=== PATIENT | male | born 1940 | race Caucasian/White ===

== ENCOUNTER → 2020-12-09 08:36 | Outpatient (CLI) | payer OTHER, SELFPAY ==
[2020-12-09 09:44] LABS: Add Manual Diff / Slide Review NO; Basophils Absolute Auto 100 /uL (0-100); Basophils Percent Auto 1.2 % (0-2); Eosinophils Absolute Auto 200 /uL (0-450); Eosinophils Percent Auto 4.3 % (2-4); Hematocrit 42.8 % (41-53); Hemoglobin 14.6 g/dL (13.5-17.5); Lymphocytes Absolute Auto 1100 /uL (1100-4500); Lymphocytes Percent Auto 20.8 % (25-40); Mean Corpuscular Hemoglobin 30.1 PG (26-34); Mean Corpuscular Volume 88.6 fL (80-100); Monocytes Absolute Auto 400 /uL (0-900); Monocytes Percent Auto 8.6 % (3-14); Neutrophils Absolute Auto 3300 /uL (1500-7000); Neutrophils Percent Auto 65.1 % (50-75); Platelet Count 185 X10^3/uL (150-400); Red Blood Cell Count 4.83 X10^6/uL (4.5-5.9); Red Cell Distribution Width 14.2 % (11.6-14.8); White Blood Cell Count 5.1 X10^3/uL (4.5-11.0)
[2020-12-09 10:00] LABS: Hemoglobin A1C% w Est Avg Glu 6.7 % (4.0-6.0)
[2020-12-09 10:01] LABS: Alanine Aminotransferase 18 IU/L (<50); Albumin 4.1 g/dL (3.5-5.0); Albumin Globulin Ratio 1.3 (1.0-2.8); Alkaline Phosphatase 70 U/L (38-126); Aspartate Aminotransferase 23 IU/L (17-59); BUN Creatinine Ratio 14.3 (6-22); Bilirubin Total 1.5 mg/dL (0.2-1.3); Blood Urea Nitrogen 14 mg/dL (9-20); Calcium 9.3 mg/dL (8.4-10.2); Carbon Dioxide 30 mmol/L (22-32); Chloride 105 mmol/L (98-107); Cholesterol 143 mg/dL (140-199); Estimated Glomerular Filt Rate > 60.0 mL/min (>60); Globulin 3.1 g/dL (1.7-4.1); Glucose 137 mg/dL (80-110); HDL Cholesterol 67 mg/dL (40-60); HEMOLYSIS < 15 (0-50); LDL Cholesterol Calculated 58 mg/dL (<100); Potassium 4.3 mmol/L (3.4-5.1); Sodium 137 mmol/L (137-145); Total Protein 7.2 g/dL (6.3-8.2); Triglycerides 90 mg/dL (35-150)
[2020-12-09 10:31] LABS: Creatinine Urine Random 219.6 mg/dL
[2020-12-09 10:32] LABS: Microalbumi Creatinin Ratio Ur 4.5 ug/mg CR (<30)
[2020-12-09 10:59] LABS: TSH w/ Reflex to FT4 4.15 uIU/mL (0.47-4.68)
== END ==
PROVIDERS: PCP Internal Medicine; Referring Provider Internal Medicine; Visit Provider Internal Medicine
DX: N40.1 Benign prostatic hyperplasia with lower urinary tract symptoms; F32.9 Major depressive disorder, single episode, unspecified; E11.9 Type 2 diabetes mellitus without complications; I25.10 Atherosclerotic heart disease of native coronary artery without angina pectoris
CPT/HCPCS: 36415; 80053; 80061; 82043; 82570; 83036; 84443; 85025

== ENCOUNTER → 2021-02-08 10:59 | Outpatient (CLI) | payer MEDICARE, SELFPAY ==
[2021-02-08] MEDS: COVID-19 VACC, Ad26(JANSSEN)/PF 0.5 ML IM (11:20)
== END ==
PROVIDERS: PCP Internal Medicine; Visit Provider Internal Medicine
DX: Z23 Encounter for immunization (principal)
CPT/HCPCS: 0031A; 91303

== ENCOUNTER → 2023-08-21 08:17 | Outpatient (CLI) | payer OTHER, SELFPAY ==
[2023-08-21 10:18] LABS: Hemoglobin A1C% w Est Avg Glu 6.8 % (4.0-6.0)
[2023-08-21 10:28] LABS: Alanine Aminotransferase 18 IU/L (<50); Albumin 3.9 g/dL (3.5-5.0); Albumin Globulin Ratio 1.5 (1.0-2.8); Alkaline Phosphatase 64 U/L (38-126); Aspartate Aminotransferase 21 IU/L (17-59); BUN Creatinine Ratio 14.9 (6-22); Bilirubin Total 1.3 mg/dL (0.2-1.3); Blood Urea Nitrogen 15 mg/dL (9-20); Calcium 9.5 mg/dL (8.4-10.2); Carbon Dioxide 23 mmol/L (22-32); Chloride 105 mmol/L (98-107); Cholesterol 115 mg/dL (140-199); Estimated Glomerular Filt Rate > 60 mL/min (>60); Globulin 2.6 g/dL (1.7-4.1); Glucose 147 mg/dL (80-110); HDL Cholesterol 54 mg/dL (40-60); HEMOLYSIS < 15 (0-50); LDL Cholesterol Calculated 48 mg/dL (<100); Potassium 4.2 mmol/L (3.4-5.1); Sodium 137 mmol/L (137-145); Total Protein 6.5 g/dL (6.3-8.2); Triglycerides 63 mg/dL (35-150)
[2023-08-21 10:58] LABS: Prostate Specific Antigen 2.07 ng/mL (0.10-4.00)
[2023-08-22 15:27] LABS: Fecal Immunochemical Test Negative (Negative)
== END ==
PROVIDERS: PCP Family Medicine; Referring Provider Family Medicine; Visit Provider Family Medicine
DX: E11.9 Type 2 diabetes mellitus without complications (principal); N40.0 Benign prostatic hyperplasia without lower urinary tract symptoms; E78.5 Hyperlipidemia, unspecified; I25.10 Atherosclerotic heart disease of native coronary artery without angina pectoris; Z12.11 Encounter for screening for malignant neoplasm of colon
CPT/HCPCS: 36415; 80053; 80061; 82274; 83036; 84153

== ENCOUNTER → 2024-01-27 07:31 | Outpatient (CLI) | payer OTHER, SELFPAY ==
[2024-01-27 08:37] LABS: Hemoglobin A1C% w Est Avg Glu 7.1 % (4.0-6.0)
[2024-01-27 08:43] LABS: Add Manual Diff / Slide Review NO; Basophils Absolute Auto 0 /uL (0-100); Basophils Percent Auto 0.8 % (0-2); Eosinophils Absolute Auto 100 /uL (0-450); Eosinophils Percent Auto 2.2 % (2-4); Hematocrit 40.5 % (41-53); Lymphocytes Absolute Auto 1400 /uL (1100-4500); Lymphocytes Percent Auto 23.4 % (25-40); Mean Corpuscular HGB Conc 34.6 % (30-36); Mean Corpuscular Hemoglobin 29.6 PG (26-34); Mean Corpuscular Volume 85.7 fL (80-100); Monocytes Absolute Auto 600 /uL (0-900); Monocytes Percent Auto 10.2 % (3-14); Neutrophils Absolute Auto 3800 /uL (1500-7000); Neutrophils Percent Auto 63.4 % (50-75); Platelet Count 185 X10^3/uL (150-400); Red Blood Cell Count 4.73 X10^6/uL (4.5-5.9); Red Cell Distribution Width 13.4 % (11.6-14.8); White Blood Cell Count 5.9 X10^3/uL (4.5-11.0)
[2024-01-27 08:57] LABS: Alanine Aminotransferase 15 IU/L (<50); Albumin 3.7 g/dL (3.5-5.0); Albumin Globulin Ratio 1.3 (1.0-2.8); Alkaline Phosphatase 74 U/L (38-126); Aspartate Aminotransferase 19 IU/L (17-59); BUN Creatinine Ratio 20.9 (6-22); Bilirubin Total 1.7 mg/dL (0.2-1.3); Blood Urea Nitrogen 18 mg/dL (9-20); Calcium 9.5 mg/dL (8.4-10.2); Carbon Dioxide 21 mmol/L (22-32); Chloride 107 mmol/L (98-107); Cholesterol 108 mg/dL (140-199); Estimated Glomerular Filt Rate > 60 mL/min (>60); Globulin 2.8 g/dL (1.7-4.1); Glucose 161 mg/dL (80-110); HDL Cholesterol 43 mg/dL (40-60); HEMOLYSIS < 15 (0-50); Iron 124 ug/dL (49-181); LDL Cholesterol Calculated 38 mg/dL (<100); Potassium 3.9 mmol/L (3.4-5.1); Sodium 138 mmol/L (137-145); Total Protein 6.5 g/dL (6.3-8.2); Triglycerides 135 mg/dL (35-150)
[2024-01-27 09:08] LABS: Percent Iron Saturation 44 % (20-50); Total Iron Binding Capacity 280 ug/dL (261-462); Transferrin 228 mg/dL (206-381)
[2024-01-27 09:19] LABS: Prostate Specific Antigen Scrn 2.18 ng/mL (0.1-4.0)
== END ==
PROVIDERS: PCP Family Medicine; Referring Provider Family Medicine; Visit Provider Family Medicine
DX: E78.5 Hyperlipidemia, unspecified (principal); E11.9 Type 2 diabetes mellitus without complications; Z12.5 Encounter for screening for malignant neoplasm of prostate; N40.0 Benign prostatic hyperplasia without lower urinary tract symptoms; I10 Essential (primary) hypertension; D50.9 Iron deficiency anemia, unspecified
CPT/HCPCS: 36415; 80053; 80061; 83036; 83540; 83550; 85025; G0103

== ENCOUNTER → 2024-02-13 15:18 | Outpatient (CLI) | payer OTHER, SELFPAY ==
--- NOTE | 2024-02-13 15:20 | DI.CT.S_ITS ---
PROCEDURE: CT HEAD/BRAIN WO CON INDICATIONS: worsening migraines TECHNIQUE: Noncontrast 4.5 mm thick angled axial sections acquired from the foramen magnum to the vertex, with coronal and sagittal reformats. For radiation dose reduction, the following was used: automated exposure control, adjustment of mA and/or kV according to patient size. COMPARISON: None. FINDINGS: Image quality: Diagnostic. CSF spaces: Basal cisterns are patent. No extra-axial fluid collections. The ventricles are symmetric in size and shape. Brain: No intracranial bleeds or masses. There is cerebral volume loss for age, with resultant ventricular and sulcal prominence. There are periventricular and deep white matter chronic small vessel ischemic changes. There is intracranial internal carotid artery atherosclerosis. Skull and face: Calvarium and visualized facial bones appear intact, without suspicious lesions. Sinuses: Mild scattered mucosal thickening most prominent in the right maxillary sinus. IMPRESSION: No acute intracranial pathology. Dictated by: Tata Kilgore M.D. on 02/13/2024 at 16:19 Approved by: Tata Kilgore M.D. on 02/13/2024 at 16:20
== END ==
LOC: CT 15:18
PROVIDERS: PCP Family Medicine; Referring Provider Family Medicine; Visit Provider Family Medicine
DX: G43.909 Migraine, unspecified, not intractable, without status migrainosus (principal)
CPT/HCPCS: 70450

== ENCOUNTER → 2024-02-27 13:04 | Outpatient (CLI) | payer MEDICARE, SELFPAY ==
--- NOTE | 2024-02-27 13:06 | DI.RAD.S_ITS ---
PROCEDURE: XR CHEST 2V INDICATIONS: Increased SOB on exertion TECHNIQUE: 2 views of the chest were acquired. COMPARISON: None. FINDINGS: Surgical changes and devices: Median sternotomy wires. Lungs and pleura: Prominent tissue markings. Small bilateral pleural effusions. Mediastinum: Mediastinal contours are normal. Heart size is normal. Bones and chest wall: No suspicious bony abnormalities. Soft tissues appear unremarkable. IMPRESSION: Prominent interstitial markings and small bilateral pleural effusions, concerning for pulmonary edema Dictated by: Otoniel Law M.D. on 02/27/2024 at 16:27 Approved by: Otoniel Law M.D. on 02/27/2024 at 16:28
[2024-02-27 15:00] LABS: NT-proBNP (BNP-Adult 18+) 2560 pg/mL (<450)
== END ==
PROVIDERS: PCP Family Medicine; Referring Provider Family Medicine; Visit Provider Family Medicine
DX: I10 Essential (primary) hypertension (principal); R06.02 Shortness of breath; I25.10 Atherosclerotic heart disease of native coronary artery without angina pectoris; E78.00 Pure hypercholesterolemia, unspecified
CPT/HCPCS: 36415; 71046; 83880

== ENCOUNTER → 2024-03-09 07:57 | Outpatient (CLI) | payer MEDICARE, SELFPAY ==
--- NOTE | 2024-03-09 08:33 | DI.ECHO.S_ITS ---
[facility] +---------+ [facility] +---------+ : : [address] : [place] : : : : [id number] : : : : Phone: [phone] Echocardiogram Report + + :Name: KIRK WILKINS Study Date: 03/09/2024 Height: 70 in : :[facility] ReadingLocation: Weight: 192 lb : : Gender: Male BSA: 2.1 m2 : :: 1940 Age: 83 yrs BP: 139/84 mmHg: :Reason For Study: CONGESTIVE HEART FAILURE : :Ordering Physician: HADLEY, : :VINCENT Performed By: Tonya Juárez : :Referring: VINCENT BUTCHER : + + Interpretation Summary 1. The left ventricular contractility is normal. Estimated ejection fraction is greater than 55%. No segmental wall motion abnormalities appreciated. Normal diastolic function present. No LVH present. 2. The right ventricular contractility is normal. 3. All cardiac chambers are of normal size. 4. No significant valvular abnormalities are appreciated. 5. No obvious intracardiac masses or thrombi are appreciated. 6. No obvious intracardiac shunts present. 7. No hemodynamically significant pericardial effusion present. Procedure: A two-dimensional transthoracic echocardiogram with color flow and Doppler was performed. The study quality was technically adequate. The patient was in sinus rhythm with heart rates between 62-71 bpm during the exam. Left Ventricle: The left ventricle is normal in size and wall thickness. The ejection fraction is estimated to be 55-60%. Right Ventricle: The right ventricle is normal size. Right ventricular systolic function is at the lower limits of normal. Atria: The left atrial size is normal. Right atrial size is normal. There is no Doppler evidence for an interatrial shunt. Mitral Valve: The mitral valve is normal in structure and function. There is trace mitral regurgitation. Aortic Valve: The aortic valve is trileaflet. The aortic valve opens well. There is no aortic valve stenosis. No aortic regurgitation is present. Tricuspid Valve: The tricuspid valve is normal in structure and function. There is trace tricuspid regurgitation. The right ventricular systolic pressure is estimated to be at least 25 mmHg based on an estimated right atrial pressure of 3 mm Hg. Pulmonic Valve: The pulmonic valve leaflets are thin and pliable; valve motion is normal. There is a trace or physiologic amount of pulmonic regurgitation. Great Vessels: The aortic root is normal size. The dimensions of the ascending aorta are normal. The IVC is of normal diameter and collapses greater than 50% with a sniff. This suggests a low right atrial pressure of 3 mm Hg. Pericardium/ Pleura There is no pericardial effusion. There is no pleural effusion. MMode/2D Measurements & Calculations LVIDd: 5.0 cm LVOT diam: 2.0 cm LVIDs: 3.4 cm Ao root diam: 3.0 cm FS: 33.1 % asc Aorta Diam: 3.4 cm IVSd: 0.85 cm LVPWd: 0.76 cm LV schwartz. diameter/BSA (cm/m^2): 2.5 LV sys. diameter/BSA (cm/m^2): 1.6 LA A2 area: 21.4 cm2 RA long axis: 4.7 cm LA A4 area: 18.1 cm2 RA area: 15.7 cm2 LA length (vol): 5.2 cm RA vol: 44.4 ml LA vol: 63.3 ml RA : 21.6 ml/m2 LA vol index: 30.9 ml/m2 IVC diam: 1.9 cm RVD1 (basal): 3.5 cm RVD2 (mid): 3.6 cm TAPSE: 1.6 cm Doppler Measurements & Calculations Ao V2 max: 104.6 cm/sec LVOT Max Temo: 99.6 cm/sec Ao V2 mean: 75.1 cm/sec LV V1 max P.0 mmHg Ao max P.4 mmHg LV V1 VTI: 21.9 cm Ao mean P.5 mmHg FATIMAH(I,D): 3.1 cm2 Ao V2 VTI: 22.3 cm FATIMAH(V,D): 3.0 cm2 sev ratio: 0.98 FATIMAH indexed to BSA (cm^2/m^2): 1.5 MV E max temo: 96.5 cm/sec TR max temo: 234.2 cm/sec MV A max temo: 50.3 cm/sec TR max P.9 mmHg MV E/A: 1.9 PA V2 max: 93.3 cm/sec Med Peak E' Temo: 6.9 cm/sec PA V2 mean: 66.3 cm/sec E/E' med: 14.1 PA mean P.9 mmHg Lat Peak E' Temo: 10.0 cm/sec PA pr(Accel): 43.0 mmHg E/E' lat: 9.6 E/e' average: 11.9 MV dec time: 0.16 sec SV(LVOT): 69.3 ml Reading Physician:
== END ==
LOC: ECHO 07:58
PROVIDERS: PCP Family Medicine; Referring Provider Family Medicine; Visit Provider Family Medicine
DX: I25.10 Atherosclerotic heart disease of native coronary artery without angina pectoris (principal); I50.9 Heart failure, unspecified
CPT/HCPCS: 93306

== ENCOUNTER → 2024-03-31 15:10 | Outpatient (CLI) | payer MEDICARE, SELFPAY ==
--- NOTE | 2024-03-31 15:11 | DI.NM.S_ITS ---
PROCEDURE: NM EXERCISE TREADMILL NON NUC COMPARISON: None. INDICATIONS: exertional fatigue FINDINGS: The patient exercised for 6 minutes and 1 second reaching 81% of maximum predicted heart rate. 7.0 METs, BURKE -19%. Appropriate BP response to exercise. No angina during the study. Mild horizontal ST depressions in the inferior leads during recovery. Occasional PVCs present. Frequent PACs and a 4 beat run of atrial tachycardia during recovery. IMPRESSION: Abnormal treadmill ECG only stress test that is slightly submaximal as only 81% of maximum predicted heart rate reached. Mild horizontal ST depressions in the inferior leads during recovery. Frequent PACs and a 4 beat run of atrial tachycardia during recovery. No angina during the study. Recommend treadmill nuclear stress test at [facility] for further evaluation. Dictated by: Gwen Perez MD on 03/31/2024 at 16:51 Approved by: Gwen Perez MD on 03/31/2024 at 16:56
== END ==
PROVIDERS: PCP Family Medicine; Referring Provider Family Medicine; Visit Provider Family Medicine
DX: R94.39 Abnormal result of other cardiovascular function study (principal); R06.09 Other forms of dyspnea; T73.3XXA Exhaustion due to excessive exertion, initial encounter; Z86.79 Personal history of other diseases of the circulatory system
CPT/HCPCS: 93017

== ENCOUNTER → 2024-05-13 13:10 | Outpatient (CLI) | payer SELFPAY ==
[2024-05-13 14:51] LABS: COVID19 -Nasal RAPID Negative (Negative)
== END ==
PROVIDERS: PCP Family Medicine; Referring Provider Family Medicine; Visit Provider Family Medicine
DX: Z20.822 Contact with and (suspected) exposure to COVID-19 (principal)
CPT/HCPCS: 87635

== ENCOUNTER → 2024-05-13 13:33 | Outpatient (CLI) | payer MEDICARE, SELFPAY ==
--- NOTE | 2024-05-13 13:37 | DI.RAD.S_ITS ---
PROCEDURE: XR CHEST 2V INDICATIONS: prolonged cough TECHNIQUE: 2 views of the chest were acquired. COMPARISON: [facility], CR, XR CHEST 2V, 02/27/2024, 13:14. FINDINGS: Surgical changes and devices: Median sternotomy wires and surgical clips are seen. Lungs and pleura: Lungs are clear. No pleural effusions or pneumothorax. Mediastinum: Mediastinal contours are normal. Heart size is normal. Bones and chest wall: No suspicious bony abnormalities. Soft tissues appear unremarkable. IMPRESSION: No acute cardiopulmonary pathology. No significant changes from previous study. Dictated by: Jean Booker M.D. on 05/13/2024 at 17:11 Approved by: Jean Booker M.D. on 05/13/2024 at 17:11
== END ==
PROVIDERS: PCP Family Medicine; Referring Provider Family Medicine; Visit Provider Family Medicine
DX: R05.8 Other specified cough (principal)
CPT/HCPCS: 71046

== ENCOUNTER → 2024-05-28 10:13 | Outpatient (CLI) | payer MEDICARE, SELFPAY ==
--- NOTE | 2024-05-28 10:15 | DI.NM.S_ITS ---
PROCEDURE: NM FLORENCE PERF SPECT REST & STR Rest and exercise myocardial perfusion SPECT with gated imaging and ejection fraction RADIOPHARMACEUTICAL: 11.0 mCi Tc-99m sestamibi IV at rest and 24.7 mCi Tc-99m sestamibi IV at peak exercise. A one day-protocol was performed. INDICATIONS: Abnormal treadmill ECG, needs further evaluation TECHNIQUE: Radiopharmaceutical was injected at peak stress test, and also at rest. SPECT images were obtained. SPECT myocardial perfusion images were displayed in short axis, horizontal long axis, and vertical long axis views. Gated images were reviewed using [employer] software. COMPARISON: None. CARDIAC STRESS: A standard [place] treadmill exercise tolerance test was performed by the patient under the supervision of an attending staff. The patient exercised for 7 minutes and 32 seconds; functional aerobic impairment (BURKE) is -44%. Hemodynamic data: There is normal blood pressure and heart rate response to exercise stress. Patient achieved 91% of maximum predicted heart rate at peak exercise. Symptoms: Patient denied chest pain during exercise. EKG: mild horizontal ST depressions in the inferior and anterolateral leads during recovery; frequent PACs during recovery. FINDINGS: Raw data: There is good myocardial labeling by radiotracer. No significant motion artifacts. Mcxc-gy-wpylb ratio is 0.25 (normal is less than 0.38 for sestamibi tracer, and less than 0.50 for thallium tracer). Left ventricle function: Gated images demonstrate normal left ventricle wall thickening. No segmental wall motion abnormality. No transient ischemic dilation; TID is 1.09 (normal less than 1.3). The left ventricle resting end-diastolic volume is 82 mL. Left ventricle stress ejection fraction is 73%; normal values are above 45%. Myocardial perfusion: There is normal distribution of activity in the left and right ventricular myocardium. No fixed or reversible perfusion defects. SSS 0. IMPRESSION: Low risk, normal treadmill nuclear stress from inducible ischemia standpoint. 1) No perfusion evidence of ischemia or infarction. SSS 0. 2) Normal left ventricular size, wall motion, and systolic function (EF post stress 73%). 3) Mild horizontal ST depressions in the inferior and anterolateral leads during recovery. These changes are non-diagnostic in the setting of reassuring perfusion images. 4) Frequent PACs during recovery. 5) No angina during the study. 6) Excellent exercise tolerance (10.1METs, BURKE -44%). Target heart rate reached. 7) Borderline hypertensive response to exercise (resting BP 118/78mmHg, max BP 200/70mmHg). 8) No prior nuclear stress test available for comparison. Dictated by: Gwen Perez MD on 05/28/2024 at 17:30 Approved by: Gwen Perez MD on 05/28/2024 at 17:38
== END ==
PROVIDERS: PCP Family Medicine; Referring Provider Family Medicine; Visit Provider Family Medicine
DX: I11.0 Hypertensive heart disease with heart failure (principal); I50.41 Acute combined systolic (congestive) and diastolic (congestive) heart failure; E78.00 Pure hypercholesterolemia, unspecified; I25.10 Atherosclerotic heart disease of native coronary artery without angina pectoris
CPT/HCPCS: 78452; 93017; A9502

== ENCOUNTER → 2024-09-01 16:28 | Outpatient (CLI) | payer OTHER, SELFPAY ==
--- NOTE | 2024-09-01 16:32 | DI.RAD.S_ITS ---
PROCEDURE: XR HIP W PEL HIEU 3V INDICATIONS: bilateral hip pain TECHNIQUE: AP pelvis with lateral views of the bilateral hip(s). COMPARISON: None. FINDINGS: Gzxo-bl-hgdpoenu degenerative changes bilateral hips with joint space narrowing and marginal osteophytes. Mild to moderate degenerative changes lower lumbar spine and sacroiliac joints. Mild vascular calcifications. No radiographic evidence of displaced fracture, dislocation or high attenuation soft tissue foreign body. Artifacts from overlying clothing and other extrinsic artifacts partially limit radiographic detail. IMPRESSION: Degenerative changes as discussed above. If symptoms persist or worsen, or there is high clinical suspicion of acute abnormality, MRI could be performed. Dictated by: Skyler Joseph M.D. on 09/02/2024 at 12:04 Approved by: Skyler Joseph M.D. on 09/02/2024 at 12:07
[2024-09-01 17:46] LABS: Erythrocyte Sedimentation Rate 31 MM/HR (0-15)
[2024-09-01 17:54] LABS: Rheumatoid Factor < 8.6 IU/mL (<12.0)
== END ==
LOC: LAB 16:31
PROVIDERS: PCP Family Medicine; Referring Provider Family Medicine; Visit Provider Family Medicine
DX: M25.551 Pain in right hip (principal); M25.552 Pain in left hip; M25.50 Pain in unspecified joint; M89.9 Disorder of bone, unspecified
CPT/HCPCS: 36415; 73522; 85651; 86038; 86200; 86430

== ENCOUNTER → 2024-09-21 12:08 | Outpatient (CLI) | payer OTHER, SELFPAY ==
[2024-09-21 12:56] LABS: Add Manual Diff / Slide Review NO; Basophils Absolute Auto 0 /uL (0-100); Basophils Percent Auto 0.7 % (0-2); Eosinophils Absolute Auto 200 /uL (0-450); Eosinophils Percent Auto 2.8 % (2-4); Hematocrit 36.9 % (41-53); Hemoglobin 12.7 g/dL (13.5-17.5); Hemoglobin A1C% w Est Avg Glu 7.4 % (4.0-6.0); Lymphocytes Absolute Auto 1200 /uL (1100-4500); Lymphocytes Percent Auto 17.2 % (25-40); Mean Corpuscular HGB Conc 34.3 % (30-36); Mean Corpuscular Hemoglobin 30.3 PG (26-34); Mean Corpuscular Volume 88.3 fL (80-100); Monocytes Absolute Auto 600 /uL (0-900); Monocytes Percent Auto 8.3 % (3-14); Neutrophils Absolute Auto 4800 /uL (1500-7000); Platelet Count 179 X10^3/uL (150-400); Red Blood Cell Count 4.18 X10^6/uL (4.5-5.9); Red Cell Distribution Width 13.4 % (11.6-14.8); White Blood Cell Count 6.8 X10^3/uL (4.5-11.0)
[2024-09-21 13:13] LABS: Alanine Aminotransferase 15 IU/L (<50); Albumin 3.5 g/dL (3.5-5.0); Albumin Globulin Ratio 1.3 (1.0-2.8); Alkaline Phosphatase 69 U/L (38-126); Aspartate Aminotransferase 24 IU/L (17-59); BUN Creatinine Ratio 20.9 (6-22); Bilirubin Total 0.8 mg/dL (0.2-1.3); Blood Urea Nitrogen 19 mg/dL (9-20); Calcium 9.2 mg/dL (8.4-10.2); Carbon Dioxide 25 mmol/L (22-32); Chloride 106 mmol/L (98-107); Estimated Glomerular Filt Rate > 60 mL/min (>60); Globulin 2.6 g/dL (1.7-4.1); Glucose 138 mg/dL (80-110); HEMOLYSIS 34 (0-50); Potassium 4.5 mmol/L (3.4-5.1); Sodium 137 mmol/L (137-145); Total Protein 6.1 g/dL (6.3-8.2); Uric Acid 5.5 mg/dL (3.5-8.5)
[2024-09-21 13:18] LABS: HEMOLYSIS < 15 (0-50); Iron 48 ug/dL (49-181)
[2024-09-21 13:27] LABS: Erythrocyte Sedimentation Rate 34 MM/HR (0-15)
[2024-09-21 13:29] LABS: Percent Iron Saturation 17 % (20-50); Total Iron Binding Capacity 281 ug/dL (261-462); Transferrin 219 mg/dL (206-381)
[2024-09-21 13:43] LABS: Cortisol Random 9.72 ug/dL
== END ==
LOC: LAB 12:09
PROVIDERS: PCP Family Medicine; Referring Provider Family Medicine; Visit Provider Family Medicine
DX: M25.50 Pain in unspecified joint (principal); E11.9 Type 2 diabetes mellitus without complications; E78.5 Hyperlipidemia, unspecified; I10 Essential (primary) hypertension; D50.9 Iron deficiency anemia, unspecified
CPT/HCPCS: 36415; 80053; 82533; 83036; 83540; 83550; 84550; 85025; 85651

== ENCOUNTER → 2024-11-27 12:01 | Outpatient (CLI) | payer MEDICARE, SELFPAY ==
[2024-11-27 12:58] LABS: Add Manual Diff / Slide Review NO; Basophils Absolute Auto 0 /uL (0-100); Basophils Percent Auto 0.5 % (0-2); Eosinophils Absolute Auto 0 /uL (0-450); Eosinophils Percent Auto 0.4 % (2-4); Hemoglobin 13.5 g/dL (13.5-17.5); Lymphocytes Absolute Auto 800 /uL (1100-4500); Lymphocytes Percent Auto 7.9 % (25-40); Mean Corpuscular HGB Conc 33.8 % (30-36); Mean Corpuscular Hemoglobin 29.6 PG (26-34); Mean Corpuscular Volume 87.6 fL (80-100); Monocytes Absolute Auto 400 /uL (0-900); Monocytes Percent Auto 3.8 % (3-14); Neutrophils Absolute Auto 9300 /uL (1500-7000); Neutrophils Percent Auto 87.4 % (50-75); Platelet Count 215 X10^3/uL (150-400); Red Blood Cell Count 4.57 X10^6/uL (4.5-5.9); Red Cell Distribution Width 14.4 % (11.6-14.8); White Blood Cell Count 10.6 X10^3/uL (4.5-11.0)
[2024-11-27 13:09] LABS: Hemoglobin A1C% w Est Avg Glu 7.4 % (4.0-6.0)
[2024-11-27 13:19] LABS: HEMOLYSIS < 15 (0-50); Iron 69 ug/dL (49-181)
[2024-11-27 13:20] LABS: Alanine Aminotransferase 20 IU/L (<50); Albumin Globulin Ratio 1.4 (1.0-2.8); Alkaline Phosphatase 63 U/L (38-126); Aspartate Aminotransferase 20 IU/L (17-59); BUN Creatinine Ratio 26.8 (6-22); Bilirubin Total 0.8 mg/dL (0.2-1.3); Blood Urea Nitrogen 26 mg/dL (9-20); Calcium 9.2 mg/dL (8.4-10.2); Carbon Dioxide 23 mmol/L (22-32); Chloride 103 mmol/L (98-107); Estimated Glomerular Filt Rate > 60 mL/min (>60); Globulin 2.9 g/dL (1.7-4.1); Glucose 208 mg/dL (80-110); HEMOLYSIS < 15 (0-50); Potassium 4.2 mmol/L (3.4-5.1); Sodium 134 mmol/L (137-145); Total Protein 6.9 g/dL (6.3-8.2)
[2024-11-27 13:30] LABS: Percent Iron Saturation 26 % (20-50); Total Iron Binding Capacity 261 ug/dL (261-462); Transferrin 242 mg/dL (206-381)
[2024-11-27 13:53] LABS: Ferritin 186 ng/mL (18-464)
[2024-11-27 14:10] LABS: Vitamin B12 953 pg/mL (239-931)
== END ==
PROVIDERS: PCP Family Medicine; Referring Provider Family Medicine; Visit Provider Family Medicine
DX: I10 Essential (primary) hypertension (principal); E11.9 Type 2 diabetes mellitus without complications; E78.00 Pure hypercholesterolemia, unspecified; D50.8 Other iron deficiency anemias; N40.1 Benign prostatic hyperplasia with lower urinary tract symptoms; R35.1 Nocturia
CPT/HCPCS: 80053; 82043; 82570; 82607; 82728; 83036; 83540; 83550; 85025

== ENCOUNTER → 2024-11-27 13:57 | Outpatient (CLI) | payer MEDICARE, SELFPAY ==
[2024-11-27 14:41] LABS: Creatinine Urine Random 74.75 mg/dL
[2024-11-27 14:48] LABS: Microalbumin Urine Random < 0.6 mg/dL (0-1.6)
== END ==
PROVIDERS: PCP Family Medicine; Referring Provider Family Medicine; Visit Provider Family Medicine
DX: I10 Essential (primary) hypertension (principal); E78.00 Pure hypercholesterolemia, unspecified; D50.8 Other iron deficiency anemias; N40.1 Benign prostatic hyperplasia with lower urinary tract symptoms; R35.1 Nocturia; E11.9 Type 2 diabetes mellitus without complications
CPT/HCPCS: 82043; 82570

== ENCOUNTER → 2025-04-22 10:56 | Outpatient (CLI) | payer MEDICARE, SELFPAY ==
[2025-04-22 12:04] LABS: Add Manual Diff / Slide Review NO; Basophils Absolute Auto 0 /uL (0-100); Basophils Percent Auto 0.5 % (0-2); Eosinophils Absolute Auto 100 /uL (0-450); Eosinophils Percent Auto 1.7 % (2-4); Hematocrit 40.6 % (41-53); Lymphocytes Absolute Auto 2000 /uL (1100-4500); Lymphocytes Percent Auto 26.7 % (25-40); Mean Corpuscular HGB Conc 34.6 % (30-36); Mean Corpuscular Volume 89.6 fL (80-100); Monocytes Absolute Auto 800 /uL (0-900); Monocytes Percent Auto 10.3 % (3-14); Neutrophils Absolute Auto 4600 /uL (1500-7000); Neutrophils Percent Auto 60.8 % (50-75); Platelet Count 190 X10^3/uL (150-400); Red Blood Cell Count 4.53 X10^6/uL (4.5-5.9); Red Cell Distribution Width 13.9 % (11.6-14.8); White Blood Cell Count 7.5 X10^3/uL (4.5-11.0)
[2025-04-22 12:30] LABS: Erythrocyte Sedimentation Rate 11 MM/HR (0-15)
[2025-04-22 12:32] LABS: Alanine Aminotransferase 24 IU/L (<50); Albumin 4.2 g/dL (3.5-5.0); Albumin Globulin Ratio 1.8 (1.0-2.8); Alkaline Phosphatase 59 U/L (38-126); Aspartate Aminotransferase 22 IU/L (17-59); BUN Creatinine Ratio 16.2 (6-22); Bilirubin Total 1.4 mg/dL (0.2-1.3); Blood Urea Nitrogen 17 mg/dL (9-20); C-Reactive Protein Quant < 0.5 mg/dL (<1.0); Calcium 9.5 mg/dL (8.4-10.2); Carbon Dioxide 25 mmol/L (22-32); Chloride 101 mmol/L (98-107); Estimated Glomerular Filt Rate > 60 mL/min (>60); Globulin 2.3 g/dL (1.7-4.1); Glucose 148 mg/dL (70-99); HEMOLYSIS < 15 (0-50); Potassium 4.7 mmol/L (3.4-5.1); Sodium 135 mmol/L (137-145); Total Protein 6.5 g/dL (6.3-8.2); Uric Acid 6.7 mg/dL (3.5-8.5)
[2025-04-22 12:36] LABS: Rheumatoid Factor < 8.6 IU/mL (<12.0)
== END ==
PROVIDERS: PCP Family Medicine; Referring Provider Internal Medicine Rheumatology; Visit Provider Internal Medicine Rheumatology
DX: M06.4 Inflammatory polyarthropathy (principal)
CPT/HCPCS: 36415; 80053; 84550; 85025; 85651; 86038; 86140; 86200; 86430

== ENCOUNTER → 2025-04-28 15:51 | Outpatient (CLI) | payer OTHER, SELFPAY ==
--- NOTE | 2025-04-28 15:54 | DI.ECHO.S_ITS ---
[facility] +---------+ Hospital : : [address] : : [place] : : [id number] : : Phone: [phone] Echocardiogram Report + + :Name: KIRK WILKINS Study Date: 04/28/2025 Height: 70 in : :[facility] ReadingLocation: Weight: 195 lb : : Gender: Male BSA: 2.1 m2 : :: 1940 Age: 84 yrs BP: 134/83 mmHg: :Reason For Study: CONGESTIVE HEART FAILURE : :Ordering Physician: DARIUS BOOKER Performed By: Cuco Veliz : :Referring: DARIUS BOOKER : + + Interpretation Summary 1. The left ventricular contractility is normal. Estimate ejection fraction is greater than 55% with no segmental wall motion abnormalities no LVH. No diastolic dysfunction. 2. The right ventricular contractility is normal. 3. All cardiac chambers are of normal size. 4. No significant valvular abnormalities. 5. No obvious intracardiac shunts. 6. No obvious intracardiac masses nor thrombi. 7. No hemodynamically significant pericardial effusion. Conclusion: Normal biventricular function with no significant valvular abnormalities. Procedure: A two-dimensional transthoracic echocardiogram with color flow and Doppler was performed. The study quality was technically good. Comparison is made with the echocardiogram of 03/09/2024. The patient was in normal sinus rhythm during the exam. Left Ventricle: The left ventricle is normal in size. There is normal left ventricular wall thickness. There is no ventricular septal defect visualized. The ejection fraction is estimated to be 55-60%. There are no focal wall motion abnormalities. Diastolic parameters suggest probable normal left ventricular diastolic function and normal filling pressures. Right Ventricle: The right ventricle is normal in size and function. Atria: The left atrial size is normal. Right atrial size is normal. There is no Doppler evidence for an interatrial shunt. Mitral Valve: There is mild mitral annular calcification. The mitral valve leaflets appear borderline thickened, but open well. There is no mitral regurgitation noted. Aortic Valve: The aortic valve is trileaflet. The aortic valve opens well. No aortic regurgitation is present. Tricuspid Valve: There is trace tricuspid regurgitation. Pulmonic Valve: The pulmonic valve is not well visualized. There is no pulmonic valvular regurgitation. Great Vessels: The aortic root is normal size. The dimensions of the ascending aorta are normal. The pulmonary artery is normal size. The inferior vena cava was not well visualized. Pericardium/ Pleura There is no pericardial effusion. MMode/2D Measurements & Calculations LVIDd: 4.3 cm LVOT diam: 2.1 cm LVIDs: 2.9 cm Ao root diam: 3.4 cm FS: 31.1 % asc Aorta Diam: 3.0 cm EPSS: 0.58 cm IVSd: 0.94 cm LVPWd: 0.99 cm LV schwartz. diameter/BSA (cm/m^2): 2.1 LV sys. diameter/BSA (cm/m^2): 1.4 LA A2 area: 20.8 cm2 RA long axis: 4.6 cm LA A4 area: 16.2 cm2 RA area: 15.3 cm2 LA length (vol): 5.5 cm RA vol: 43.7 ml LA vol: 51.4 ml RA : 21.1 ml/m2 LA vol index: 24.9 ml/m2 RVD1 (basal): 3.9 cm RVD2 (mid): 2.8 cm TAPSE: 1.9 cm Doppler Measurements & Calculations Ao V2 max: 120.7 cm/sec LVOT Max Temo: 107.1 cm/sec Ao V2 mean: 85.3 cm/sec LV V1 max P.6 mmHg Ao max P.8 mmHg LV V1 VTI: 20.7 cm Ao mean P.2 mmHg FATIMAH(I,D): 3.2 cm2 Ao V2 VTI: 22.7 cm FATIMAH(V,D): 3.1 cm2 sev ratio: 0.91 FATIMAH indexed to BSA (cm^2/m^2): 1.5 MV E max temo: 54.5 cm/sec TR max temo: 252.2 cm/sec MV A max temo: 54.8 cm/sec TR max P.4 mmHg MV E/A: 1.00 PA V2 max: 86.6 cm/sec Med Peak E' Temo: 5.0 cm/sec PA V2 mean: 60.6 cm/sec E/E' med: 10.9 PA mean P.6 mmHg Lat Peak E' Temo: 8.2 cm/sec PA pr(Accel): 68.7 mmHg E/E' lat: 6.7 E/e' average: 8.8 MV dec time: 0.23 sec SV([facility]): 72.3 ml Reading Physician:ANABELL
== END ==
PROVIDERS: PCP Family Medicine; Referring Provider Internal Medicine; Visit Provider Internal Medicine
DX: I34.81 Nonrheumatic mitral (valve) annulus calcification (principal); I50.32 Chronic diastolic (congestive) heart failure
CPT/HCPCS: 93306

== ENCOUNTER → 2025-06-09 10:25 | Outpatient (CLI) | payer OTHER, SELFPAY ==
[2025-06-09 11:38] LABS: Hemoglobin A1C% w Est Avg Glu 7.8 % (4.0-6.0)
== END ==
PROVIDERS: PCP Family Medicine; Referring Provider Family Medicine; Visit Provider Family Medicine
DX: E11.69 Type 2 diabetes mellitus with other specified complication (principal)
CPT/HCPCS: 36415; 83036

== ENCOUNTER → 2025-06-16 11:15 | Outpatient (CLI) | payer OTHER, SELFPAY ==
[2025-06-16 12:08] LABS: Add Manual Diff / Slide Review NO; Hematocrit 40.0 % (41-53); Hemoglobin 13.6 g/dL (13.5-17.5); Lymphocytes Absolute Auto 1500 /uL (1100-4500); Mean Corpuscular HGB Conc 34.1 % (30-36); Mean Corpuscular Hemoglobin 30.9 PG (26-34); Mean Corpuscular Volume 90.6 fL (80-100); Platelet Count 199 X10^3/uL (150-400)
[2025-06-16 12:37] LABS: Alanine Aminotransferase 25 IU/L (<50); Albumin 4.2 g/dL (3.5-5.0); Albumin Globulin Ratio 1.8 (1.0-2.8); Alkaline Phosphatase 60 U/L (38-126); Blood Urea Nitrogen 14 mg/dL (9-20); Calcium 9.3 mg/dL (8.4-10.2); Carbon Dioxide 26 mmol/L (22-32); Chloride 102 mmol/L (98-107); Estimated Glomerular Filt Rate > 60 mL/min (>60); Globulin 2.3 g/dL (1.7-4.1); Glucose 182 mg/dL (70-99); HEMOLYSIS < 15 (0-50); Potassium 4.2 mmol/L (3.4-5.1); Sodium 136 mmol/L (137-145); Total Protein 6.5 g/dL (6.3-8.2)
== END ==
PROVIDERS: PCP Family Medicine; Referring Provider Internal Medicine Rheumatology; Visit Provider Internal Medicine Rheumatology
DX: M06.4 Inflammatory polyarthropathy (principal)
CPT/HCPCS: 36415; 80053; 85025; 85651

== ENCOUNTER → 2025-08-13 10:05 | Outpatient (CLI) | payer OTHER, SELFPAY ==
[2025-08-13 11:11] LABS: Add Manual Diff / Slide Review NO; Hematocrit 37.4 % (41-53); Hemoglobin 12.9 g/dL (13.5-17.5); Lymphocytes Absolute Auto 900 /uL (1100-4500); Mean Corpuscular HGB Conc 34.5 % (30-36); Mean Corpuscular Hemoglobin 32.1 PG (26-34); Mean Corpuscular Volume 93.1 fL (80-100); Platelet Count 193 X10^3/uL (150-400)
[2025-08-13 11:40] LABS: Alanine Aminotransferase 24 IU/L (<50); Albumin 3.8 g/dL (3.5-5.0); Albumin Globulin Ratio 1.7 (1.0-2.8); Alkaline Phosphatase 64 U/L (38-126); Blood Urea Nitrogen 13 mg/dL (9-20); Calcium 8.9 mg/dL (8.4-10.2); Carbon Dioxide 24 mmol/L (22-32); Chloride 103 mmol/L (98-107); Estimated Glomerular Filt Rate > 60 mL/min (>60); Globulin 2.3 g/dL (1.7-4.1); Glucose 183 mg/dL (70-99); HEMOLYSIS < 15 (0-50); Potassium 4.3 mmol/L (3.4-5.1); Sodium 136 mmol/L (137-145); Total Protein 6.1 g/dL (6.3-8.2)
== END ==
PROVIDERS: PCP Family Medicine; Referring Provider Internal Medicine Rheumatology; Visit Provider Internal Medicine Rheumatology
DX: M06.4 Inflammatory polyarthropathy (principal)
CPT/HCPCS: 36415; 80053; 85025; 85651; 86140

== ENCOUNTER → 2025-10-18 08:47 | Outpatient (CLI) | payer OTHER, SELFPAY ==
[2025-10-18 11:01] LABS: Cholesterol 137 mg/dL (140-199); HDL Cholesterol 63 mg/dL (40-60); Triglycerides 113 mg/dL (35-150)
== END ==
PROVIDERS: PCP Family Medicine; Referring Provider Family Medicine; Visit Provider Internal Medicine
DX: I25.10 Atherosclerotic heart disease of native coronary artery without angina pectoris (principal)
CPT/HCPCS: 36415; 80061

== ENCOUNTER → 2025-11-16 07:00 | Outpatient (CLI) | payer OTHER, SELFPAY ==
[2025-11-16 08:02] LABS: HEMOLYSIS < 15 (0-50); Iron 141 ug/dL (49-181)
[2025-11-16 08:08] LABS: Alanine Aminotransferase 34 IU/L (<50); Albumin 3.9 g/dL (3.5-5.0); Albumin Globulin Ratio 1.7 (1.0-2.8); Alkaline Phosphatase 78 U/L (38-126); Blood Urea Nitrogen 17 mg/dL (9-20); Calcium 9.4 mg/dL (8.4-10.2); Carbon Dioxide 24 mmol/L (22-32); Chloride 102 mmol/L (98-107); Cholesterol 124 mg/dL (140-199); Estimated Glomerular Filt Rate > 60 mL/min (>60); Globulin 2.3 g/dL (1.7-4.1); Glucose 163 mg/dL (70-99); HDL Cholesterol 49 mg/dL (40-60); HEMOLYSIS < 15 (0-50); Potassium 4.2 mmol/L (3.4-5.1); Sodium 136 mmol/L (137-145); Total Protein 6.2 g/dL (6.3-8.2); Triglycerides 125 mg/dL (35-150)
[2025-11-16 08:15] LABS: Hemoglobin A1C% w Est Avg Glu 7.0 % (4.0-6.0); Percent Iron Saturation 47 % (20-50); Total Iron Binding Capacity 298 ug/dL (261-462); Transferrin 236 mg/dL (206-381)
[2025-11-16 08:34] LABS: TSH w/ Reflex to FT4 4.58 uIU/mL (0.47-4.68)
[2025-11-16 08:53] LABS: Vitamin B12 896 pg/mL (239-931)
== END ==
PROVIDERS: PCP Family Medicine; Referring Provider Family Medicine; Visit Provider Family Medicine
DX: E11.69 Type 2 diabetes mellitus with other specified complication (principal); E78.00 Pure hypercholesterolemia, unspecified; I10 Essential (primary) hypertension; D50.8 Other iron deficiency anemias; D50.9 Iron deficiency anemia, unspecified
CPT/HCPCS: 36415; 80053; 80061; 82043; 82274; 82570; 82607; 83036; 83540; 83550; 84443